=== PATIENT | male | born 1975 | race Caucasian/White ===

== ENCOUNTER 2024-08-30 09:17 | Emergency (ER) | payer OTHER ==
[2024-08-30] MEDS ORDERED: Lidocaine 2% 20 ML MDV INFILT ONE (09:18)
[2024-08-30] MEDS: Lidocaine/Epineph/Tetracaine 3 ML Syringe TOP ONE (09:30)
[2024-08-30] MEDS: Acetaminophen/oxyCODONE 325-5 MG Tab PO STA (09:32)
[2024-08-30] MEDS ORDERED: Naloxone 0.4 MG/ML SDV IVPUSH PRN (09:54)
[2024-08-30] MEDS ORDERED: Sodium Chloride 0.9% 10 ML Syringe FLUSH PRN (09:54)
[2024-08-30] MEDS: HYDROmorphone 2 MG/ML SDV IVPUSH ONE ×2 (10:03→11:58)
[2024-08-30] MEDS: Sodium Chloride 0.9% 1,000 ML IV SCH (10:03)
[2024-08-30] MEDS: ceFAZolin 2 GM Vial IVPUSH ONE (10:21)
[2024-08-30] MEDS: Ondansetron 4 MG/2 ML SDV IVPUSH ONE (11:20)
== END 2024-08-30 12:15 | disposition home or self-care (01) ==
LOC: FB.ED 09:17
DX: S62.632B Displaced fracture of distal phalanx of right middle finger, initial encounter for open fracture (principal); S62.634B Displaced fracture of distal phalanx of right ring finger, initial encounter for open fracture; Z79.899 Other long term (current) drug therapy; W23.1XXA Caught, crushed, jammed, or pinched between stationary objects, initial encounter; Y93.89 Activity, other specified
CPT/HCPCS: 12001; 12002; 73130; 96374; 96375; 96376; 99283; A9270; J0690; J1171; J2003; J2405